=== PATIENT | male | born 1965 | race Caucasian/White ===

== ENCOUNTER 2017-01-15 12:43 | Day surgery (SDC) | payer BC, OTHER ==
[2017-01-10 09:40] VITALS: BMI 31.1
[~2017-01-15 12:43] MED LIST: DEXAMETHASONE SOD PHOSPHATE 10 MG/ML 1 ML VIAL IV ONE; HYDROmorphone 0.5 MG/0.5 ML SYRINGE IVP PRN; LACTATED RINGERS 1,000 ML IV SCH; LIDOCAINE 1% 20 ML VIAL (10MG/ML) FOR IV START INTRADERMA PRN; Pre Op ABX Message 1 EACH MISC MISCELLANE ONE; SCOPOLAMINE 1.5MG/72HR PATCH TRANSDERM ONE
[2017-01-15] MEDS ORDERED: ONDANSETRON 4 MG/2 ML VIAL IVP ONE (13:09)
[2017-01-15] MEDS ORDERED: LIDOCAINE 1% INJ 10MG/ML (20 ML MDV) SQ ONE (14:09)
[2017-01-15] MEDS ORDERED: LIDOCAINE 1% INJ 10MG/ML (20 ML MDV) ONE (14:15)
[2017-01-15] MEDS ORDERED: GLYCOPYRROLATE 0.2 MG/ML 2 ML VIAL ONE (14:15)
[2017-01-15] MEDS ORDERED: PROPOFOL 10 MG/ML 20 ML VIAL IV ONE (14:15)
[2017-01-15] MEDS ORDERED: fentaNYL (PF) 50 MCG/ML 2 ML AMP ONE (14:15)
[2017-01-15] MEDS ORDERED: MIDAZOLAM 2 MG/2 ML VIAL ONE (14:15)
[2017-01-15] MEDS ORDERED: SODIUM CHLORIDE 0.9% 50 ML with ceFAZolin 2,000 MG IV ONE ×2 (14:29)
--- NOTE | 2017-01-15 14:52 | P.PCN ---
Date of Procedure: 01/15/17 Preoperative Diagnosis: Plantar fasciitis right foot Postoperative Diagnosis: Same Procedure(s) Performed: Endoscopic plantar fasciotomy right foot Surgeon: Fabian Adams Operative Findings: Unremarkable
[2017-01-15 14:59] VITALS: TEMP 96.8
--- NOTE | 2017-01-15 15:02 | P.OP ---
Date of Procedure: 01/15/17 Preoperative Diagnosis: Plantar fasciotomy right foot Postoperative Diagnosis: Same Procedure(s) Performed: Endoscopic plantar fasciotomy procedure right foot Surgeon: Fabian Adams Operative Findings: Unremarkable Description of Procedure: On the date of surgery the patient was taken to the operating room in good condition placed on the operating table in supine position where an IV was started and adequate IV anesthetic agents were utilized anesthesia was then further supplemented with approximately 10 mL of 1% Xylocaine plain given in an infiltrative block to the patient's right heel. 9 The patient's right foot and ankle were then elevated and exsanguinated of blood and after approximately 1 minutes. A time the ankle tourniquet to the patient's right ankle was inflated to approximately 250 mmHg at this time attention was directed latter medial side of the patient's right foot where an approximately 1 cm linear incision was made the incision was deepened via sharp dissection down through the level of subcutaneous tissue layers. The incision was placed directly over the medial band of the plantar fascia. A fascial elevator was passed along the inferior surface of the plantar fascia from medially to laterally creating a channel for the obturator and cannula complex this was then inserted and a lateral exit incision was made the endoscope was introduced from the medial side and L blade from the lateral side and the medial band of the plantar fascia was severed upon completion of this fascial probe was used to ensure that all fibers had been severed and when this was seen to be true the surgical site was flushed with copious amounts of sterile saline solution. The cannula was removed skin edges were then coaptated and maintained utilizing 4-0 nylon simple interrupted suture. Adaptic Kerlix fluffs four-inch conformer and 4 inch Coban was used to form a compression dressing and the ankle tourniquet to the patient's right ankle was deflated adequate hemostatic return was seen in all digits the patient's right foot. The patient tolerated the surgery and anesthesia well was taken to the recovery room in good postoperative condition.
[2017-01-15 15:56] VITALS: RESP 18
[2017-01-15 16:13] VITALS: BP 130/80; PULSE 82
== END 2017-01-15 16:36 | disposition home or self-care (01) ==
LOC: OR 12:43
PROVIDERS: ATTEND Podiatrist Foot & Ankle Surgery
DX: M72.2 Plantar fascial fibromatosis (principal); N52.9 Male erectile dysfunction, unspecified; Z79.899 Other long term (current) drug therapy
CPT/HCPCS: 29893; J2250; J1100; J2405; J2001; J3010; J0690; J2704